=== PATIENT | female | born 1980 | race Caucasian/White ===

== ENCOUNTER 2021-05-06 09:00 | Emergency (ER) | payer OTHER, SELFPAY ==
[2021-05-06 09:15] VITALS: BP 135/80; PULSE 91; RESP 16; TEMP 36.5; O2SAT 100
--- NOTE | 2021-05-06 09:16 | ED.SKABFB ---
HPI - Skin/Abscess/Foreign Bdy General Chief complaint: Skin/Abscess/Foreign Body Stated complaint: Rash Time Seen by Provider: 05/06/21 09:10 Source: patient and RN notes reviewed History of Present Illness HPI narrative: Patient is a 40-year-old female who presents the urgent care with complaints of poison ev since Sunday. Patient states that they had to [place] and that is when she believes she contracted the poison ev. Patient has been using tech new scrub and ev cream [id number]. No other acute complaints. No acute distress noted. Patient aware of the plan of care. Some parts of this dictation were generated by voice recognition software and may contain typographical and/or grammatical inaccuracies. Related Data Allergies Allergy/AdvReac Type Severity Reaction Status Date / Time No Known Allergies Allergy Verified 05/06/21 09:19 Review of Systems Review of Systems: CONSTITUTIONAL: Denies fever, chills, or sweats. EYES: Denies visual changes, redness, or discharge. ENT: Denies rhinorrhea, congestion, sore throat, or otalgia. CARDIOVASCULAR: Denies chest pain, palpitations, or edema. RESPIRATORY: Denies cough or dyspnea. GASTROINTESTINAL: Denies abdominal pain, nausea, vomiting, or diarrhea. GENITOURINARY: Denies dysuria or hematuria. SKIN: Reports of an itchy pustular rash to the forearms, chest and the face MUSCULOSKELETAL: Denies back pain, joint pain, or myalgia. NEUROLOGIC: Denies headache, numbness, or weakness. All other systems reviewed are negative, except as documented in HPI. Exam Narrative: GENERAL: This is a well-nourished, well-developed patient, in no apparent distress. HEAD: normocephalic, atraumatic. EYES: PERRL. Sclera clear/white. Vision is grossly intact. EARS: External ears normal NOSE: External nose normal with no obvious nasal discharge, nares without redness, no rhinorrhea. THROAT: Mucous membranes moist NECK: Neck supple CARDIOVASCULAR: Regular rate and rhythm without murmurs, gallops, or rubs. RESPIRATORY: Clear to auscultation. Breath sounds equal bilaterally. No wheezes, rales, or rhonchi. SKIN: Vesicular dermatitis noted to bilateral forearms, anterior chest, and the right side of the face consistent with poison ev NEURO: awake, alert, and oriented to person, place and time. There were no obvious focal neurologic abnormalities. EXTREMITIES: No clubbing, cyanosis, or edema. Course Vital Signs Vital signs: Vital Signs Temperature 97.7 F 05/06/21 09:15 Pulse Rate 91 05/06/21 09:15 Respiratory Rate 16 05/06/21 09:15 Blood Pressure 135/80 05/06/21 09:15 Pulse Oximetry 100 05/06/21 09:15 Temperature 97.7 F 05/06/21 09:15 Pulse Rate 91 05/06/21 09:15 Respiratory Rate 16 05/06/21 09:15 Blood Pressure 135/80 05/06/21 09:15 Pulse Oximetry 100 05/06/21 09:15 Reviewed MDM - Skin/Abscess/Foreign Bdy MDM Narrative Medical decision making narrative: Advised the patient to complete the steroid regimen as prescribed. Be sure to eat and drink with the medication. Use the prescription cream to the affected areas avoiding near the eyes, underarms and groin. Continue to use the [id number] TecNu scrub daily. Follow-up with your PCP within 2 to 5 days or for worsening symptoms or failure to improve. Differential Diagnosis Differential diagnosis: Likely abscess of skin or subcutaneous tissue, urticaria, cellulitis, insect bites, impetigo and contact dermatitis Critical Care Time Critical Care Time Critical Care Time: No Discharge Plan Discharge Clinical Impression: Rhus dermatitis Patient Disposition: Home, Self-Care Condition: Stable Instructions: Antibiotic Form, Poison Ev (ED) Additional Instructions: Advised the patient to complete the steroid regimen as prescribed. Be sure to eat and drink with the medication. Use the prescription cream to the affected areas avoiding near the eyes, underar
== END 2021-05-06 09:25 | disposition home or self-care (01) ==
PROVIDERS: Emergency Provider Nurse Practitioner Family; PCP Internal Medicine
DX: L23.7 Allergic contact dermatitis due to plants, except food (principal)
CPT/HCPCS: 99213; G0463

== ENCOUNTER 2021-07-06 15:26 | Emergency (ER) | payer OTHER, SELFPAY ==
--- NOTE | 2021-07-06 15:31 | ED.ABDPAIN ---
HPI - Abdominal Pain General Chief Complaint: Abdominal Pain Stated Complaint: Abdominal Pain Time Seen by Provider: 07/06/21 15:32 Source: patient and RN notes reviewed History of Present Illness HPI narrative: Patient is a 40-year-old female who presents the urgent care with complaints of lower right groin pain. Patient states that started yesterday when she started her menstrual cycle. Patient denies of any history of ovarian cysts. States that she was taking ibuprofen that did not help much with the pain. Patient denies of any fevers, nausea, vomiting, diarrhea or urinary complaints. Patient states that the pain comes and goes and has not consistent. No other acute complaints. Denies of any changes in her menstrual flow. No distress noted. Patient aware of the plan of care. Some parts of this dictation were generated by voice recognition software and may contain typographical and/or grammatical inaccuracies. Related Data Allergies Allergy/AdvReac Type Severity Reaction Status Date / Time No Known Allergies Allergy Verified 05/06/21 09:19 Review of Systems Review of Systems: CONSTITUTIONAL: Denies fever, chills, or sweats. EYES: Denies visual changes, redness, or discharge. ENT: Denies rhinorrhea, congestion, sore throat, or otalgia. CARDIOVASCULAR: Denies chest pain, palpitations, or edema. RESPIRATORY: Denies cough or dyspnea. GASTROINTESTINAL: Denies abdominal pain, nausea, vomiting, or diarrhea. GENITOURINARY: Reports of right lower groin pain. Denies dysuria or hematuria. SKIN: Denies rash or itching. MUSCULOSKELETAL: Denies back pain, joint pain, or myalgia. NEUROLOGIC: Denies headache, numbness, or weakness. All other systems reviewed are negative, except as documented in HPI. PMFSH Comments At the time of my signature, I reviewed and agree with the nursing past medical, surgical, social, and family history. There is no relevant family history pertinent to the patient complaint. Exam Narrative: GENERAL: This is a well-nourished, well-developed patient, in no apparent distress. HEAD: normocephalic, atraumatic. EYES: PERRL. Sclera clear/white. Vision is grossly intact. EARS: External ears normal NOSE: External nose normal with no obvious nasal discharge, nares without redness, no rhinorrhea. THROAT: Mucous membranes moist NECK: Neck supple CARDIOVASCULAR: Regular rate and rhythm without murmurs, gallops, or rubs. RESPIRATORY: Clear to auscultation. Breath sounds equal bilaterally. No wheezes, rales, or rhonchi. GASTROINTESTINAL: Abdomen soft, non-tender, nondistended. Bowel sounds are active. No guarding : No guarding with groin palpation. No palpable abnormality to the suprapubic region. SKIN: warm, intact with no suspicious lesions or rash, good texture and turgor. NEURO: awake, alert, and oriented to person, place and time. There were no obvious focal neurologic abnormalities. EXTREMITIES: No clubbing, cyanosis, or edema. Course Vital Signs Vital signs: Vital Signs Temperature 98.1 F 07/06/21 15:32 Pulse Rate 90 07/06/21 15:32 Respiratory Rate 18 07/06/21 15:32 Blood Pressure 142/77 H 07/06/21 15:32 Pulse Oximetry 100 07/06/21 15:32 Temperature 98.1 F 07/06/21 15:32 Pulse Rate 90 07/06/21 15:32 Respiratory Rate 18 07/06/21 15:32 Blood Pressure 142/77 H 07/06/21 15:32 Pulse Oximetry 100 07/06/21 15:32 Reviewed-patient is informed that they may have pre-hypertension or hypertension based on a blood pressure reading in the department. I recommend the patient call the primary care provider listed on their discharge instructions or a physician of their choice this week to arrange follow-up for further evaluation of possible pre-hypertension or hypertension. MDM - Abdominal Pain MDM Narrative Medical decision making narrative: Explained to the patient that our facility is not capable to rule out ovarian cyst but symptoms do appear to be very similar. Symptoms tend to c
[2021-07-06 15:32] VITALS: BP 142/77; PULSE 90; RESP 18; TEMP 36.7; O2SAT 100
== END 2021-07-06 15:50 | disposition home or self-care (01) ==
PROVIDERS: Emergency Provider Nurse Practitioner Family; PCP Internal Medicine
DX: R10.31 Right lower quadrant pain (principal)
CPT/HCPCS: 99211; G0463

== ENCOUNTER 2022-02-05 14:28 | Emergency (ER) | payer OTHER, SELFPAY ==
[2022-02-05 14:30] VITALS: BP 126/92; PULSE 100; RESP 18; TEMP 37.2; O2SAT 100
--- NOTE | 2022-02-05 15:31 | ED.GENADULT ---
HPI - General Adult General Chief complaint: Skin/Abscess/Foreign Body Stated complaint: rash Source: patient Mode of arrival: ambulatory Limitations: no limitations History of Present Illness HPI narrative: Patient presents for evaluation of pruritic rash to abdomen and bilateral lower extremities. Symptoms have been present for five days. Symptoms started after working outdoors. She believes she was exposed to poison alina. She has had an allergic response to poison alina in the past. She has been taking benadryl PO q 6 hr and has also been applying hydrocortisone cream as well. She has been taking showers three times per day to assist in reduction of itching. No additional complaints or concerns. Related Data Allergies Allergy/AdvReac Type Severity Reaction Status Date / Time No Known Allergies Allergy Verified 05/06/21 09:19 Review of Systems Review of Systems: CONSTITUTIONAL: Denies fever, chills, or sweats. EYES: Denies visual changes, redness, or discharge. ENT: Denies rhinorrhea, congestion, sore throat, or otalgia. CARDIOVASCULAR: Denies chest pain, palpitations, or edema. RESPIRATORY: Denies cough or dyspnea. GASTROINTESTINAL: Denies abdominal pain, nausea, vomiting, or diarrhea. GENITOURINARY: Denies dysuria or hematuria. SKIN: Reports pruritic rash to abdomen and BLE. MUSCULOSKELETAL: Denies back pain, joint pain, or myalgia. NEUROLOGIC: Denies headache, numbness, dizziness, or weakness. PSYCHIATRIC: Denies anxiety or depression. PMFSH Past Medical History Medical History No pertinent past medical history Surgical History Surgical History No pertinent past surgical history Family History Family History Mother No pertinent past medical history Social History Social History Smoking status: Never smoker Substance use: never Living arrangements: with family Gender identity (if verbalized by the patient): Female Sexual Orientation (if Verbalized by the Patient): Straight or Heterosexual Exam Narrative: GENERAL: Well-appearing, well-nourished, and in no acute distress. HEAD: Normocephalic, atraumatic. EYES: PERRLA and EOMI. ENT: Nares clear, no rhinorrhea or epistaxis. Mucous membranes moist. Oropharynx without tonsillar hypertrophy exudate or other lesions. Bilateral TMs pearly hernandez nonbulging NECK: Supple. No adenopathy or masses. No carotid bruits or JVD CHEST: Clear to auscultation. No respiratory distress. No wheezes rales or rhonchi HEART: Regular rate and rhythm. No murmur heard. Normal peripheral pulses. ABDOMEN: Soft, nontender, nondistended, normal active bowel sounds. EXTREMITIES: Normal range of motion. No edema. SKIN: There is a vesicular rash noted to bilateral lower extremities and abdomen with some streaking present NEURO: No focal deficits. Alert and oriented x3. PSYCH: Normal mood and affect. Course Course Emergency Course: This is a 41-year-old female that presented for evaluation of a rash that started after an exposure to poison alina. She will continue with benadryl. Advised on calamine lotion. Will dc with steroids. Follow up outpatient for further evaluation and treatment and return for worsening symptoms. Pt in agreement with plan of care. Level of Care: Express Care Visit Vital Signs Vital signs: Vital Signs Temperature 37.2 C 02/05/22 14:30 Pulse Rate 100 02/05/22 14:30 Respiratory Rate 18 02/05/22 14:30 Blood Pressure 126/92 H 02/05/22 14:30 Pulse Oximetry 100 02/05/22 14:30 Temperature 37.2 C 02/05/22 14:30 Pulse Rate 100 02/05/22 14:30 Respiratory Rate 18 02/05/22 14:30 Blood Pressure 126/92 H 02/05/22 14:30 Pulse Oximetry 100 02/05/22 14:30 Medical Decision Making Cecy
== END 2022-02-05 14:55 | disposition home or self-care (01) ==
PROVIDERS: Emergency Provider Nurse Practitioner; PCP Internal Medicine
DX: L23.7 Allergic contact dermatitis due to plants, except food (principal)
CPT/HCPCS: 99213; G0463

== ENCOUNTER 2023-04-16 08:15 | Emergency (ER) | payer OTHER, SELFPAY ==
[2023-04-16 08:20] VITALS: BP 139/88; PULSE 120; RESP 20; TEMP 36.6; O2SAT 100
--- NOTE | 2023-04-16 08:36 | ED.URI ---
HPI - URI/Sore Throat General Chief Complaint: Upper Respiratory Infection Stated Complaint: Chest Congestion/Congestion Time Seen by Provider: 04/16/23 08:36 Source: patient, RN notes reviewed and old records reviewed Mode of arrival: ambulatory Limitations: no limitations History of Present Illness HPI Narrative: 42 year old female who presents to [facility] care with complaints of chest congestion, cough,ear pressure, headache,sinus pressure with some cloudy clear nasal drainage since Sunday. Patient reports history of asthma and has been using her son's nebulizer and using her albuterol inhaler also, Patient reports that she does feel some shortness of breath. Patient denies any known fevers, chills or sweats, denies any body aches, states that she has headache and generally does not feel well. Patient reports that she took home Covid test on Sunday that was negative, has been COVID vaccinated. MD elicited complaint: cough, rhinorrhea, nasal congestion and sinus pain Pertinent past history: sinusitis and asthma Onset (ago): day(s) (day 4 of symptoms) Description of mucous: clear (cloudy) Able to tolerate fluids by mouth: Yes Treatments prior to arrival: ibuprofen and other (nebulizer and Albuterol) Related Data Home Medications Medication Instructions Recorded Confirmed albuterol sulfate 90 mcg/actuation 2 inh inhalation Q4-6H PRN 04/16/23 04/16/23 breath activated powder inhaler Shortness Of Breath Or Wheezing Allergies Allergy/AdvReac Type Severity Reaction Status Date / Time No Known Allergies Allergy Verified 04/16/23 08:39 Review of Systems Review of Systems: CONSTITUTIONAL: Reports malaise, no chills, sweats, or fever. EYES: Denies visual changes, redness, or discharge. ENT: Reports rhinorrhea, congestion, sinus pain, otalgia and sore throat. CARDIOVASCULAR: Denies chest pain, palpitations, or edema. RESPIRATORY: Reports cough.? Reports some dyspnea, history of asthma GASTROINTESTINAL: Denies abdominal pain, nausea, vomiting, diarrhea SKIN: Denies rash or itching. MUSCULOSKELETAL: Denies myalgia. NEUROLOGIC: reports headache. All systems reviewed & are unremarkable except as noted in HPI and below PMFSH Past Medical History Medical History (Updated 04/17/23 @ 07:50 by Puja Murphy NP) Asthma Sinusitis Surgical History Surgical History (Updated 04/17/23 @ 07:48 by Puja Murphy NP) History of cholecystectomy Family History Family History Mother No pertinent past medical history Social History Social History Smoking status: Never smoker Substance use: never Living arrangements: with family Gender identity (if verbalized by the patient): Female Sexual Orientation (if Verbalized by the Patient): Straight or Heterosexual Comments At time of signature, agree with nursing past medical, surgical, social and family history. There is no relevant family history pertinent to the presenting complaint Exam Narrative: GENERAL: Well-appearing, well-nourished, and in no acute distress. HEAD: Normocephalic EYES: PERRLA, conjunctivae clear ENT: Nares clear, turbinates edematous and erythematous, clear cloudy discharge Mucous membranes moist.sinus pressure and frontal headache, TM pearly hernandez with dull light reflex bilaterally; no tragal tenderness. Oropharynx erythematous without lesions. Tonsils not enlarged and without exudate, no drooling, no hoarseness, no trismus, uvula midline.post nasal drainage NECK: Supple. no lymphadenopathy CHEST: Clear to auscultation, breath sounds equal. No wheezing, rhonchi, rales, or stridor. No respiratory distress, speaks in full sentences.cough SAO2 100% on room air HEART: Regular rate and rhythm. No murmur heard. SKIN: Warm, dry, no rash. NEURO: Alert and oriented x3. PSYCH: Normal mood and affect Course
== END 2023-04-16 09:15 | disposition home or self-care (01) ==
PROVIDERS: Emergency Provider Registered Nurse; PCP Internal Medicine
DX: J45.901 Unspecified asthma with (acute) exacerbation (principal); J06.9 Acute upper respiratory infection, unspecified; Z20.822 Contact with and (suspected) exposure to COVID-19
CPT/HCPCS: 87081; 87426; 87804; 87880; 99213; C9803; G0463

== ENCOUNTER 2024-05-04 17:02 | Emergency (ER) | payer OTHER, SELFPAY ==
[2024-05-04 17:12] VITALS: BP 131/73; PULSE 77; RESP 18; TEMP 36.7; O2SAT 99
[2024-05-04 17:23] VITALS: BP 131/73; PULSE 77; RESP 18; TEMP 36.7; O2SAT 99
--- NOTE | 2024-05-04 17:59 | ED.SKABFB ---
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 Patient has red raised itchy rash to right side of face and on neck and area on right eyelid, in upper chest area and on right hip and scattered areas on arms. Patient reports that she has used IVarest,washed with Daisy dish soap, topical hydrocortisone without relief, reports she thinks it is spreading. MD complaint: rash Onset (ago): day(s) (3) Location: generalized Severity: moderate Quality: pruritic Treatments prior to arrival: other (Ivyrest topical, daisy soap and ) Related Data Allergies Allergy/AdvReac Type Severity Reaction Status Date / Time No Known Allergies Allergy Verified 05/04/24 17:21 Review of Systems Review of Systems: CONSTITUTIONAL: Denies fever, chills, or sweats. CARDIOVASCULAR: Denies chest pain, palpitations, or edema. RESPIRATORY: Denies cough or dyspnea. SKIN: Reports rash to the right side of neck face and right upper eyelid, on arms, area on back, and on upper chest which is itchy MUSCULOSKELETAL: Denies joint pain or myalgia. NEUROLOGIC: Denies headache, numbness, or weakness. All systems reviewed & are unremarkable except as noted in HPI and below PMFSH Past Medical History Medical History Asthma Sinusitis Surgical History Surgical History History of cholecystectomy Family History Family History Mother No pertinent past medical history Social History Social History Smoking status: Never smoker Substance use: never Living arrangements: with family Gender identity (if verbalized by the patient): Female Sexual Orientation (if Verbalized by the Patient): Straight or Heterosexual Comments At time of signature, agree with nursing past medical, surgical, social and family history. There is no relevant family history pertinent to the presenting complaint Exam Narrative: GENERAL: Well-appearing, well-nourished, and in no acute distress. HEAD: Normocephalic, atraumatic. EYES: PERRLA, conjunctivae clear, and EOMI. ENT: Mucous membranes moist. Oropharynx without edema, erythema or lesions. NECK: Supple. No lymphadenopathy CHEST: Clear to auscultation. No respiratory distress. SAO2 99% on room air HEART: Regular rate and rhythm. SKIN: Warm, dry.? Patches of erythema and edema with itchy grouped, scattered and linear rash that is generalized on body, right neck face and right eye lid, on upper chest at breasts, right hip and scattred on arms for 3 day duration NEURO:? Alert and oriented x3. PSYCH: Normal mood and affect Course Course Emergency Course: Patient is aware of diagnosis, understands and agrees to treatment plan.? Anticipatory guidance given.? Patient agrees to follow-up as directed and is aware of reasons to seek care at the emergency department. Portions of this record may have been created with voice recognition software Level of Care: Express Care Visit Vital Signs Vital signs: Vital Signs Temperature 36.7 C 05/04/24 17:12 Pulse Rate 77 05/04/24 17:12 Respiratory Rate 18 05/04/24 17:12 Blood Pressure 131/73 05/04/24 17:12 Pulse Oximetry 99 05/04/24 17:12 Oxygen Delivery Room Air 05/04/24 17:12 Temperature 36.7 C 05/04/24 17:23 Pulse Rate 77 05/04/24 17:23 Respiratory Rate 18 05/04/24 17:23 Blood Pressure 131/73 05/04/24 17:23 Pulse Oximetry 99 05/04/24
[2024-05-04] MEDS: methylPREDNISolone ACETATE 80 MG/ML VIAL IM (18:15)
== END 2024-05-04 18:35 | disposition home or self-care (01) ==
PROVIDERS: Emergency Provider Registered Nurse; PCP Internal Medicine
DX: L23.7 Allergic contact dermatitis due to plants, except food (principal); J45.909 Unspecified asthma, uncomplicated
CPT/HCPCS: 96372; 99213; G0463; J1010